=== PATIENT | male | born 1995 | race Caucasian/White ===

== ENCOUNTER → 2017-04-17 | Outpatient (CLI) | payer BC ==
--- NOTE | 2017-04-17 07:44 | US ---
EXAMINATION TYPE: US gallbladder DATE OF EXAM: 04/17/2017 COMPARISON: NONE CLINICAL HISTORY: R19.7 Diarrhea,R11.0Nausea/vomiting,R10.11RUQ Pain. EXAM MEASUREMENTS: Liver Length: 14.2 cm Gallbladder Wall: 0.2 cm CBD: 0.1 cm Right Kidney: 9.6 x 3.5 x 5.3 cm Pancreas: wnl Liver: wnl Gallbladder: wnl Evidence for sonographic Armendariz's sign: tenderness CBD: wnl Right Kidney: wnl IMPRESSION: Normal study
== END | disposition home or self-care (01) ==
LOC: RADUSWWP 07:12
PROVIDERS: ATTEND Family Medicine
DX: R11.0 Nausea (principal)
CPT/HCPCS: 76705

== ENCOUNTER 2017-04-28 15:36 | Emergency (ER) | payer BC ==
[2017-04-28] MEDS ORDERED: ONDANSETRON 4 MG/2 ML VIAL IVP STA (16:05)
[2017-04-28] MEDS ORDERED: HYDROmorphone 1 MG/ML 1 ML SYRINGE IVP STA (16:05)
[2017-04-28] MEDS ORDERED: SODIUM CHLORIDE 0.9% 1,000 ML IV STA (16:05)
[2017-04-28] MEDS ORDERED: PANTOPRAZOLE 40 MG/10 ML VIAL IVP STA (16:07)
--- NOTE | 2017-04-28 16:08 | ED ---
General Adult HPI - General Chief complaint: Abdominal Pain Stated complaint: abdominal pain/vomiting Time Seen by Provider: 04/28/17 15:59 Source: patient, RN notes reviewed Mode of arrival: ambulatory Limitations: no limitations - History of Present Illness Initial comments: Patient 21-year-old male with no significant past medical history, who presents emergency room today with a chief complaint of increased abdominal pain over the last month. He does admit that he's been experiencing some pain in the right upper quadrant. He does admit to symptoms of nausea vomiting. He states it's been bile colored recently. He states he has felt his family doctor had an ultrasound performed of the right upper quadrant recently. Patient states the pain increased today while he was at work. He states his had multiple episodes of nausea vomiting. He does admit the pain becomes worse after eating. She also admits some diarrhea. Patient denies any other complaints. Denies any signs of blood in the emesis. Patient denies any recent fever, chills , shortness of breath, chest pain, back pain, numbness or tingling, dysuria or hematuria, constipation, headaches or visual changes, or any other complaints. - Related Data Previous Rx's Medication Instructions Recorded Famotidine [Pepcid] 20 mg PO BID #20 tablet 04/28/17 Ondansetron Odt [Zofran ODT] 4 mg PO Q8HR PRN #20 tab 04/28/17 Allergies Allergy/AdvReac Type Severity Reaction Status Date / Time No Known Allergies Allergy Verified 04/28/17 16:20 Review of Systems ROS Statement: Those systems with pertinent positive or pertinent negative responses have been documented in the HPI. ROS Other: All systems not noted in ROS Statement are negative. Past Medical History Past Medical History: No Reported History History of Any Multi-Drug Resistant Organisms: None Reported Past Surgical History: Hernia Repair Past Psychological History: ADD/ADHD Smoking Status: Never smoker Past Alcohol Use History: None Reported Past Drug Use History: Marijuana General Exam - General Exam Comments Initial Comments: General: The patient is awake and alert, in no distress, and does not appear acutely ill. Eye: Pupils are equal, round and reactive to light, extra-ocular movements are intact. No nystagmus. There is normal conjunctiva bilaterally. No signs of icterus. Ears, nose, mouth and throat: There are moist mucous membranes and no oral lesions. Neck: The neck is supple, there is no tenderness or JVD. Cardiovascular: There is a regular rate and rhythm. No murmur, rub or gallop is appreciated. Respiratory: Lungs are clear to auscultation, respirations are non-labored, breath sounds are equal. No wheezes, stridor, rales, or rhonchi. Gastrointestinal: Normal appearance abdomen. Normal bowel sounds. Abdomen soft on palpation. Patient does have tenderness right upper quadrant. Positive Armendariz sign. No rebound tenderness. No guarding. Mild right-sided CVA tenderness. Musculoskeletal: Normal ROM, no tenderness. Strength 5/5. Sensation intact. Pulses equal bilaterally 2+. Neurological: A&O x 3. CN II-XII intact, There are no obvious motor or sensory deficits. Coordination appears grossly intact. Speech is normal. Skin: Skin is warm and dry and no rashes or lesions are noted. Psychiatric: Cooperative, appropriate mood & affect, normal judgment. Limitations: no limitations Course Vital Signs 04/28/17 15:40 Temperature 97.4 F L Pulse Rate 55 L Respiratory 18 Rate Blood Pressure 130/81 O2 Sat by Pulse 100 Oximetry Medical Decision Making - Medical Decision Making Patient reexamined at this time showing no signs of distress resting comfortably in the stretcher. His abdomen is soft. Patient's labs reviewed shows 15,000 white count. Patient's ultrasound on 04/17/2017 reviewed and showed no acute abnormalities. Patient's CAT scan today shows no abnormality of the gallbladder, liver, intestines. Does show possible bilateral hydrocele. Patient has no pain or symptoms in this area. Patient at this time will be discharged home and continued on Pepcid to protect his stomach and given nausea medication of Zofran for his symptoms. Advised to use Tylenol/ibuprofen as for pain. Advised return here to the emergency room if symptoms increase or worsen or for any other concerns. Advised follow-up with his family doctor tomorrow. Advised return for any other concerns. Patient and family. Bedside state understanding and is in agreement. - Lab Data Result diagrams: 04/28/17 16:14 04/28/17 16:14 Lab Results 04/28/17 04/28/17 04/28/17 Range/Units 16:14 16:14 17:36 WBC 15.0 H (3.8-10.6) k/uL RBC 5.11 (4.30-5.90) m/uL Hgb 15.8 (13.0-17.5) gm/dL Hct 45.6 (39.0-53.0) % MCV 89.1 (80.0-100.0) fL MCH 30.9 (25.0-35.0) pg MCHC 34.6 (31.0-37.0) g/dL RDW 13.6 (11.5-15.5) % Plt Count 357 (150-450) k/uL Neutrophils % 85 % Lymphocytes % 8 % Monocytes % 4 % Eosinophils % 2 % Basophils % 0 % Neutrophils # 12.7 H (1.3-7.7) k/uL Lymphocytes # 1.2 (1.0-4.8) k/uL Monocytes # 0.6 (0-1.0) k/uL Eosinophils # 0.2 (0-0.7) k/uL Basophils # 0.0 (0-0.2) k/uL Sodium 140 (137-145) mmol/L Potassium 3.9 (3.5-5.1) mmol/L Chloride 105 (98-107) mmol/L Carbon Dioxide 20 L (22-30) mmol/L Anion Gap 15 mmol/L BUN 16 (9-20) mg/dL Creatinine 1.10 (0.66-1.25) mg/dL Est GFR (MDRD) Af Amer >60 (>60 ml/min/1.73 sqM) Est GFR (MDRD) Non-Af >60 (>60 ml/min/1.73 sqM) Glucose 99 (74-99) mg/dL Calcium 10.4 H (8.4-10.2) mg/dL Total Bilirubin 0.9 (0.2-1.3) mg/dL AST 22 (17-59) U/L ALT 39 (21-72) U/L Alkaline Phosphatase 71 (38-126) U/L Total Protein 7.6 (6.3-8.2) g/dL Albumin 4.8 (3.5-5.0) g/dL Amylase 65 (30-110) U/L Lipase 146 (23-300) U/L Urine Color Yellow Urine Appearance Clear (Clear) Urine pH 8.0 (5.0-8.0) Ur Specific [place] 1.021 (1.001-1.035) Urine Protein Trace H (Negative) Urine Glucose (UA) Negative (Negative) Urine Ketones Trace H (Negative) Urine Blood Negative (Negative) Urine Nitrite Negative (Negative) Urine Bilirubin Negative (Negative) Urine Urobilinogen <2.0 (<2.0) mg/dL Ur Leukocyte Esterase Negative (Negative) Disposition Clinical Impression: Biliary colic Disposition: HOME SELF-CARE Condition: Good Instructions: Abdominal Pain (ED) Additional Instructions: Please use medication as discussed. Please follow-up with family doctor in the next 1-2 days. Please return to emergency room if the symptoms increase or worsen or for any other concerns. Prescriptions: Famotidine [Pepcid] 20 mg PO BID #20 tablet Ondansetron Odt [Zofran ODT] 4 mg PO Q8HR PRN #20 tab PRN Reason: Nausea Referrals: Adam Kenney MD [Primary Care Provider] - 1-2 days Time of Disposition: 18:58
[2017-04-28 16:23] LABS: Basophils % (A) 0 %; CH 32.1; CHCM 36.1; Eosinophils # (A) 0.2 k/uL (0-0.7); Eosinophils % (A) 2 %; HCT 45.6 % (39.0-53.0); HGB 15.8 gm/dL (13.0-17.5); Luc # (Auto) 0.18; Luc % (Auto) 1; Lymphocytes # (A) 1.2 k/uL (1.0-4.8); Lymphocytes % (A) 8 %; MCH 30.9 pg (25.0-35.0); MCHC 34.6 g/dL (31.0-37.0); MCV 89.1 fL (80.0-100.0); Mean Platelet Volume 7.1; Monocytes # (A) 0.6 k/uL (0-1.0); Monocytes % (A) 4 %; Neutrophils # (A) 12.7 k/uL (1.3-7.7); Neutrophils % (A) 85 %; RBC 5.11 m/uL (4.30-5.90); RDW 13.6 % (11.5-15.5); WBC (Perox) 14.64
[2017-04-28 16:33] LABS: ALT 39 U/L (21-72); AST 22 U/L (17-59); Alkaline Phosphatase 71 U/L (38-126); Amylase 65 U/L (30-110); Anion Gap 15 mmol/L; Blood Urea Nitrogen 16 mg/dL (9-20); Calcium 10.4 mg/dL (8.4-10.2); Carbon Dioxide 20 mmol/L (22-30); Chloride 105 mmol/L (98-107); Glucose 99 mg/dL (74-99); Non-African American GFR(MDRD) >60 (>60 ml/min/1.73 sqM); Potassium 3.9 mmol/L (3.5-5.1); Sodium 140 mmol/L (137-145); Total Bilirubin 0.9 mg/dL (0.2-1.3); Total Protein 7.6 g/dL (6.3-8.2)
--- NOTE | 2017-04-28 16:55 | XR ---
EXAMINATION TYPE: XR KUB DATE OF EXAM: 04/28/2017 COMPARISON: NONE INDICATION: Abdomen pain, right-sided abdominal pain, nausea TECHNIQUE: Single view abdomen upright view FINDINGS: Air is present within the colon. Some air-fluid levels may be within the ascending and transverse col on. No mass effect is evident. Psoas margins are normal. No organomegaly is present. IMPRESSION: 1. Scattered air-fluid levels within the colon. Correlate for gastroenteritis.
[2017-04-28 17:45] LABS: Appearance,Urine Clear (Clear); Bilirubin,Urine Negative (Negative); Glucose,Urine (UA) Negative (Negative); Ketones,Urine Trace (Negative); Leukocyte Esterase,Urine Negative (Negative); Nitrite,Urine Negative (Negative); Protein,Urine Trace (Negative); Specific Gravity,Urine 1.021 (1.001-1.035); UA Billing (MACRO vs. MICRO) CHEM; Urobilinogen,Urine <2.0 mg/dL (<2.0)
[2017-04-28] MEDS ORDERED: RX INFO: IV CONTRAST WAS GIVEN 1 EACH MISC MISCELLANE PRN (17:56)
--- NOTE | 2017-04-28 18:41 | CT ---
EXAMINATION TYPE: CT abdomen pelvis w con DATE OF EXAM: 04/28/2017 COMPARISON: NONE HISTORY: Patient complains of RUQ pain. CT DLP: 352.3 mGycm Automated exposure control for dose reduction was used. TECHNIQUE: Helical acquisition of images was performed from the lung bases through the pelvis. CONTRAST: Performed without Oral Contrast and with IV Contrast, patient injected with 100 mL of Omnipaque 300. FINDINGS: LUNG BASES: No significant abnormality is appreciated. LIVER/GB: No significant abnormality is appreciated. PANCREAS: No significant abnormality is seen. SPLEEN: No significant abnormality is seen. ADRENALS: No significant abnormality is seen. KIDNEYS: No significant abnormality is seen. FREE AIR: No free air is visualized. RETROPERITONEAL ADENOPATHY: None visualized REPRODUCTIVE ORGANS: No significant abnormality is seen URINARY BLADDER: No significant abnormality is seen. PELVIC ADENOPATHY: None visualized. OSSEOUS STRUCTURES: No significant abnormality is seen. BOWEL: No significant abnormality is seen. No evidence of bowel obstruction. The appendix is not def initively visualized. There is no free fluid in the right lower quadrant or lymphadenopathy to sugges t acute appendicitis. OTHER: The scrotum is incompletely visualized. There appears to be possible bilateral hydroceles. Cor relation with physical exam is recommended. IMPRESSION: NEARLY UNREMARKABLE EXAMINATION. The scrotum is incompletely visualized however there is suspicion of bilateral hydroceles. Physical e xamination is recommended.
[2017-04-28 19:27] VITALS: BP 116/72; PULSE 88; RESP 18; TEMP 98.7
== END 2017-04-28 19:20 | disposition home or self-care (01) ==
LOC: EC 15:36
DX: K80.50 Calculus of bile duct without cholangitis or cholecystitis without obstruction (principal); Z98.890 Other specified postprocedural states
CPT/HCPCS: 99284; 96374; 96375 ×2; 96361; 36415; 80053; 82150; 83690; 85025; 81003; 74000; 74177; J2405; J1170; Q9967; C9113